=== PATIENT | female | born 1965 | race Caucasian/White ===

== ENCOUNTER 2017-12-01 10:36 | Emergency (ER) | payer OTHER ==
[~2017-12-01 10:36] MED LIST: NORE-45 PO
--- NOTE | 2017-12-01 10:52 | ER Report ---
History and Physical Time Seen By MD: 10:52 Hx. of Stated Complaint: PATIENT WAS SENT OVER BY THE PA AT DR. ALFONSO OFFICE; STATES THAT FOR A WHILE HER BLOOD PRESSURE HAS BEEN HIGH AND THAT SHE HAS SOME LEFT ARM TINGLING, TIGHTNESS OF CHEST AND A LITTLE BIT OF HEART BURN SINCE YESTERDAY AND IS EXPERIENCING TODAY WELL HPI/ROS CHIEF COMPLAINT: elevated blood pressure, chest tightness HISTORY OF PRESENT ILLNESS: This is a 51 year old female. She was sent over to the ER from Dr. Abbott's office by his PA because of symptoms of chest tightness , some left arm tingling, mild shortness of breath associated with a very elevated blood pressure. No history of elevated blood pressure in the past. shortness of breath is mild and seems worse when just sitting, but not worsened with exertion or with lying flat. No cough or fever. Chest tightness just left of sternum, non-radiating, and does not worsen with anything. Has had some heart burn symptoms. These symptoms started yesterday evening and have been off and on since then. Has been having some headaches, but is on her menses and headaches are typical for this, not worse than usual. No confusion, difficulty thinking, dizziness or blurred vision. No problems with urination or with bowels. No abdominal pain. Her mother has a history of cardiac disease, but the patient has no history of this. She has never had blood pressure problems in the past, and last blood pressure prior to today was in the 120 systolic range. She has no known history of thyroid problems. She is on a control pill and on a recent prescription for doxycycline for a skin problems. REVIEW OF SYSTEMS: As above. 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 Reviewed Nurses Notes: Yes Hx Smoking: No Hx Substance Use Disorder: No Constitutional Vital Sign - Last 24 Hours 12/01/17 12/01/17 12/01/17 12/01/17 10:43 10:46 11:00 11:06 Temp 98.4 Pulse 90 82 Resp 20 17 B/P (MAP) 199/103 199/103 (135) 192/124 (146) Pulse Ox 97 95 O2 Delivery Room Air 12/01/17 12/01/17 12/01/17 12/01/17 11:20 11:27 11:45 12:00 B/P (MAP) 166/95 (118) 153/90 (111) 146/91 (109) 141/89 (106) 12/01/17 12/01/17 12/01/17 12/01/17 12:05 12:15 12:30 12:35 Pulse 69 65 Resp 21 20 B/P (MAP) 130/85 (100) 131/88 (102) Pulse Ox 92 93 12/01/17 12/01/17 12/01/17 12/01/17 12:45 13:00 13:05 13:15 Pulse 64 Resp 19 B/P (MAP) 132/86 (101) 140/78 (98) 140/86 (104) Pulse Ox 93 12/01/17 12/01/17 12/01/17 12/01/17 13:30 13:35 13:45 13:50 Pulse 65 72 Resp 26 12 B/P (MAP) 139/87 (104) 138/88 (105) Pulse Ox 94 95 12/01/17 12/01/17 12/01/17 12/01/17 14:00 14:20 14:30 14:50 Pulse 66 63 Resp 12 18 B/P (MAP) 133/111 (118) 140/87 (104) Pulse Ox 96 95 Physical Exam General Appearance: The patient is alert. No acute distress. Non-toxic in appearance. Eyes: Pupils are equal, round. Reactive to light. No pallor, injection or icterus. Extraocular movements are intact. ENT: Mucous membranes are moist. Normal oral mucosa. Posterior oropharynx is normal. Neck: Supple and non tender. No lymphadenopathy. No thyromegaly or nodules. Respiratory: Breathing easily and unlabored. Lungs are clear to auscultation. Cardiovascular: Regular rate and rhythm. No murmurs, gallops or rubs. Normal capillary refill. No edema. Gastrointestinal: Abdomen is soft and non tender. Nondistended. Normal active bowel sounds. No costovertebral angle tenderness with percussion. Neurological: Alert and oriented x3. Cranial nerves II through XII show no acute deficits on my exam. No focal neurologic deficits in the extremities. Skin: Warm and dry. No rashes. Musculoskeletal: No tenderness in palpation of the cervical, thoracic and lumbar spine. DIFFERENTIAL DIAGNOSIS: After history and physical exam, differential diagnosis was considered for hypertensive urgency associated with chest tightness, left arm tingling, and mild shortness of breath, we'll need to rule out acute coronary syndrome as well, but no signs of other end organ damage based on history and exam. Medical Decision Making Data Points Result Diagram: 12/01/17 1109 12/01/17 1109 Laboratory Hematology Test 12/01/17 10:45 12/01/17 11:09 Urine Color Straw Urine Clarity Clear Urine pH 7.0 pH (4.8-9.5) Urine Specific [place] 1.004 Urine Protein Negative mg/dL (NEGATIVE) Urine Glucose (UA) Negative mg/dL (NEGATIVE) Urine Ketones Negative mg/dL (NEGATIVE) Urine Blood Moderate (NEGATIVE) Urine Nitrite Negative (NEGATIVE) Urine Bilirubin Negative (NEGATIVE) Urine Urobilinogen Negative mg/dL (0.2-1.9) Urine Leukocyte Esterase Trace (NEGATIVE) Urine RBC <1 /HPF (0-2/HPF) Urine WBC <1 /HPF (0-5/HPF) Urine Squamous Epithelial Cells Few /LPF (</=FEW) Urine Bacteria Negative /HPF (NONE-FEW) Urine Mucus None /HPF (NONE-FEW) Red Blood Count 4.90 M/uL (4.17-5.56) Mean Corpuscular Volume 87.9 fL (80.0-96.0) Mean Corpuscular Hemoglobin 30.7 pg (26.0-33.0) Mean Corpuscular Hemoglobin Concent 34.9 g/dL (32.0-36.0) Red Cell Distribution Width 12.9 % (11.5-14.5) Mean Platelet Volume 8.3 fL (7.2-11.1) Neutrophils (%) (Auto) 62.4 % (39.4-72.5) Lymphocytes (%) (Auto) 27.2 % (17.6-49.6) Monocytes (%) (Auto) 8.9 % (4.1-12.4) Eosinophils (%) (Auto) 0.4 % (0.4-6.7) Basophils (%) (Auto) 1.1 % (0.3-1.4) Nucleated RBC Relative Count (auto) 0.1 /100WBC Neutrophils # (Auto) 3.8 K/uL (2.0-7.4) Lymphocytes # (Auto) 1.7 K/uL (1.3-3.6) Monocytes # (Auto) 0.5 K/uL (0.3-1.0) Eosinophils # (Auto) 0.0 K/uL (0.0-0.5) Basophils # (Auto) 0.1 K/uL (0.0-0.1) Nucleated RBC Absolute Count (auto) 0.00 K/uL D-Dimer Quantitative (PE/DVT) < 0.27 ug/ml (0-0.50) Sodium Level 139 mmol/L (137-145) Potassium Level 3.9 mmol/L (3.5-5.0) Chloride Level 101 mmol/L (98-107) Carbon Dioxide Level 28 mmol/L (22-31) Blood Urea Nitrogen 14 mg/dl (7-18) Creatinine 0.70 mg/dl (0.52-1.04) Glomerular Filtration Rate Calc > 60.0 Random Glucose 93 mg/dl (75-110) Calcium Level 9.2 mg/dl (8.4-10.2) Total Bilirubin 1.0 mg/dl (0.2-1.3) Aspartate Amino Transf (AST/SGOT) 24 U/L (0-35) Alanine Aminotransferase (ALT/SGPT) 19 U/L (0-56) Alkaline Phosphatase 74 U/L (0-126) Troponin I < 0.012 ng/ml Total Protein 8.3 g/dl (6.3-8.2) Albumin 4.5 g/dl (3.5-5.0) Thyroid Stimulating Hormone (TSH) 0.74 uIU/ml (0.46-4.68) Chemistry Test 12/01/17 10:45 12/01/17 11:09 Urine Color Straw Urine Clarity Clear Urine pH 7.0 pH (4.8-9.5) Urine Specific [place] 1.004 Urine Protein Negative mg/dL (NEGATIVE) Urine Glucose (UA) Negative mg/dL (NEGATIVE) Urine Ketones Negative mg/dL (NEGATIVE) Urine Blood Moderate (NEGATIVE) Urine Nitrite Negative (NEGATIVE) Urine Bilirubin Negative (NEGATIVE) Urine Urobilinogen Negative mg/dL (0.2-1.9) Urine Leukocyte Esterase Trace (NEGATIVE) Urine RBC <1 /HPF (0-2/HPF) Urine WBC <1 /HPF (0-5/HPF) Urine Squamous Epithelial Cells Few /LPF (</=FEW) Urine Bacteria Negative /HPF (NONE-FEW) Urine Mucus None /HPF (NONE-FEW) White Blood Count 6.1 k/uL (4.5-11.0) Red Blood Count 4.90 M/uL (4.17-5.56) Hemoglobin 15.0 g/dL (12.0-16.0) Hematocrit 43.0 % (34.0-47.0) Mean Corpuscular Volume 87.9 fL (80.0-96.0) Mean Corpuscular Hemoglobin 30.7 pg (26.0-33.0) Mean Corpuscular Hemoglobin Concent 34.9 g/dL (32.0-36.0) Red Cell Distribution Width 12.9 % (11.5-14.5) Platelet Count 287 K/uL (150-450) Mean Platelet Volume 8.3 fL (7.2-11.1) Neutrophils (%) (Auto) 62.4 % (39.4-72.5) Lymphocytes (%) (Auto) 27.2 % (17.6-49.6) Monocytes (%) (Auto) 8.9 % (4.1-12.4) Eosinophils (%) (Auto) 0.4 % (0.4-6.7) Basophils (%) (Auto) 1.1 % (0.3-1.4) Nucleated RBC Relative Count (auto) 0.1 /100WBC Neutrophils # (Auto) 3.8 K/uL (2.0-7.4) Lymphocytes # (Auto) 1.7 K/uL (1.3-3.6) Monocytes # (Auto) 0.5 K/uL (0.3-1.0) Eosinophils # (Auto) 0.0 K/uL (0.0-0.5) Basophils # (Auto) 0.1 K/uL (0.0-0.1) Nucleated RBC Absolute Count (auto) 0.00 K/uL D-Dimer Quantitative (PE/DVT) < 0.27 ug/ml (0-0.50) Glomerular Filtration Rate Calc > 60.0 Calcium Level 9.2 mg/dl (8.4-10.2) Total Bilirubin 1.0 mg/dl (0.2-1.3) Aspartate Amino Transf (AST/SGOT) 24 U/L (0-35) Alanine Aminotransferase (ALT/SGPT) 19 U/L (0-56) Alkaline Phosphatase 74 U/L (0-126) Troponin I < 0.012 ng/ml Total Protein 8.3 g/dl (6.3-8.2) Albumin 4.5 g/dl (3.5-5.0) Thyroid Stimulating Hormone (TSH) 0.74 uIU/ml (0.46-4.68) Coagulation Test 12/01/17 11:09 D-Dimer Quantitative (PE/DVT) < 0.27 ug/ml Urinalysis Test 12/01/17 10:45 Urine Color Straw Urine Clarity Clear Urine pH 7.0 pH (4.8-9.5) Urine Specific Franklin 1.004 Urine Protein Negative mg/dL (NEGATIVE) Urine Glucose (UA) Negative mg/dL (NEGATIVE) Urine Ketones Negative mg/dL (NEGATIVE) Urine Blood Moderate (NEGATIVE) Urine Nitrite Negative (NEGATIVE) Urine Bilirubin Negative (NEGATIVE) Urine Urobilinogen Negative mg/dL (0.2-1.9) Urine Leukocyte Esterase Trace (NEGATIVE) Urine RBC <1 /HPF (0-2/HPF) Urine WBC <1 /HPF (0-5/HPF) Urine Squamous Epithelial Cells Few /LPF (</=FEW) Urine Bacteria Negative /HPF (NONE-FEW) Urine Mucus None /HPF (NONE-FEW) EKG/Imaging EKG Interpretation 12 lead EKG: Rhythm: normal sinus rhythm, rate 76 [place]: normal QRS: normal ST segments: Nonspecific, no ST elevation or depression noted Imaging 2 VIEWS CHEST INDICATION: Chest tightness COMPARISON: None available FINDINGS: Heart size within normal limits. There is no focal infiltrate or lobar consolidation. There is no pneumothorax or pleural effusion. Moderately hyperinflated lung escobar noted. There is an ovoid 1.4 cm density projecting over the lower thoracic spine on the lateral view which may relate to a posterior lower lobe large nodule. This is not seen on the frontal view. Consider nonemergent follow-up CT of the chest to further characterize. IMPRESSION: 1. No acute cardiopulmonary process. 2. Ovoid nodular density projecting of the lower thoracic spine on the lateral view as above. A nonemergent follow-up CT could be obtained to further characterize. Report Dictated By: Petey Cee MD at 12/01/2017 1:18 PM ED Course/Re-evaluation Clinical Indication for ER IV: IV Access ED Course The patient had an IV placed and labs obtained. EKG as noted above. Labs were unremarkable. Negative Troponin and D-dimer. Given Labetalol 20mg IV and good results. Symptoms are gone. Chest x-ray shows a nodular density just off of the thoracic spine. CT scan obtained. Patient was started on Lisinopril 5mg once a day and recommended to follow-up with primary care for further evaluation and recommended cardiac stress testing. Labs need to be repeated in a few weeks after starting the Lisinopril. Decision to Disposition Date: Dec 01, 2017 Decision to Disposition Time: 13:46 Depart Departure Latest Vital Signs Vital Signs Date Time Temp Pulse Resp B/P (MAP) Pulse Ox O2 Delivery O2 Flow Rate FiO2 12/01/17 14:50 63 18 95 12/01/17 14:30 140/87 (104) 12/01/17 10:43 98.4 Room Air Impression: Primary Impression: Hypertensive urgency Additional Impression: Chest tightness or pressure Condition: Improved Disposition: HOME OR SELF-CARE Referrals: SHANNAN ABBOTT MD (PCP) New Scripts Lisinopril (LISINOPRIL) 5 Mg Tablet 5 MG PO QDAY, #30 TAB 0 Refills Prov: JOSE L PIERRE MD 12/01/17 Patient Instructions: Hypertension (ED) Additional Instructions: Labs and x-rays today did not show any major problems. We did see the nodular density seen on the chest x-ray that we talked about and we will get the CT results for you once the CT scan has been read by radiology. We do not know why your blood pressure was elevated, but it responded well the to the medicine we gave in the ER (Labetalol 20mg IV). We want to start you on a low dose of a blood pressure medicine called Lisinopril. (Lisinopril 5mg once a day). This is a very common blood pressure medicine with good efficacy and good protection for the heart and kidneys. You will need to have repeat lab testing in the next couple of weeks to check kidney function after starting this medicine. Please take your blood pressure a couple of times a day and keep a log of these for your regular doctor. We think that the chest tightness may have been due to the elevated blood pressure, but there was no sign of a heart attack. We would recommend talking to your regular doctor about getting a cardiac stress test done in the next week or two to further evaluate the heart. If you have further symptoms of chest tightness or shortness of breath, we recommend further evaluation sooner. No heavy physical activity until you follow-up with your regular doctor. Call and talk to Dr. Abbott's office to see if they can assist with the new medication and stress test, or if they would like you to get set up with a primary care provider for these things. Problem Qualifiers JOSE L PIERRE MD Dec 01, 2017 10:52
[2017-12-01] MEDS ORDERED: ASPI1TAB23 PO (10:59)
[2017-12-01] MEDS ORDERED: DOXY50SY2 PO (10:59)
[2017-12-01] MEDS ORDERED: LABETALOL HCL 100 MG/20ML VIAL IVP ONE (11:05)
--- NOTE | 2017-12-01 11:15 | EKG ---
FACILITY: [facility] PATIENT NAME: CALOS IBRAHIM : [id number] MR: [id number] V: [id number] EXAM DATE: ORDERING PHYSICIAN: JOSE L PIERRE TECHNOLOGIST: Test Reason : Blood Pressure : / mmHG Vent. Rate : 076 BPM Atrial Rate : 076 BPM P-R Int : 158 ms QRS Dur : 074 ms QT Int : 416 ms P-R-T Axes : 082 -11 053 degrees QTc Int : 468 ms Sinus rhythm Possible Left atrial enlargement Nonspecific ST abnormality Abnormal ECG No previous ECGs available Confirmed by ASHIA PATIÑO ([id number]) on 12/02/2017 5:37:50 AM Referred By: Confirmed By:ASHIA PATIÑO
[2017-12-01 11:18] LABS: PLATELET COUNT, AUTOMATED 287 K/uL (150-450)
--- NOTE | 2017-12-01 13:23 | RADIOLOGY IMAGING REPORT ---
FACILITY: [facility] PATIENT NAME: Gaye Bass : 1965 MR: [id number] V: [id number] EXAM DATE: ORDERING PHYSICIAN: JOSE L PIERRE TECHNOLOGIST: Location: [facility] - [place] Patient: Gaye Bass : 1965 Visit/Account:[id number] Date of Sevice: 12/01/2017 2 VIEWS CHEST INDICATION: Chest tightness COMPARISON: None available FINDINGS: Heart size within normal limits. There is no focal infiltrate or lobar consolidation. There is no pneumothorax or pleural effusion. Moderately hyperinflated lung escobar noted. There is an ovoid 1.4 cm density projecting over the low er thoracic spine on the lateral view which may relate to a posterior lower lobe large nodule. This is not seen on the frontal view. Consider nonemergent follow-up CT of the chest to further character ize. IMPRESSION: 1. No acute cardiopulmonary process. 2. Ovoid nodular density projecting of the lower thoracic spine on the lateral view as above. A non emergent follow-up CT could be obtained to further characterize. Report Dictated By: Petey Cee MD at 12/01/2017 1:18 PM Report E-Signed By: Petey Cee MD at 12/01/2017 1:20 PM WSN:[email or web address]
[2017-12-01] MEDS ORDERED: LISINOPRIL 10 MG TAB PO ONE (13:45)
[2017-12-01] MEDS ORDERED: LISI5TAB25 PO (13:55)
[2017-12-01] MEDS ORDERED: IOPAMIDOL 76% 100 ML INFUS BTL 100 ML ONE (14:01)
[2017-12-01 14:30] VITALS: BP 140/87
--- NOTE | 2017-12-01 14:56 | RADIOLOGY IMAGING REPORT ---
FACILITY: [facility] [place] PATIENT NAME: Gaye Bass : 1965 MR: [id number] V: [id number] EXAM DATE: ORDERING PHYSICIAN: JOSE L PIERRE TECHNOLOGIST: Location: [facility] Patient: Gaye Bass : 1965 Visit/Account:[id number] Date of Sevice: 12/01/2017 Examination: CT chest with contrast COMPARISON: Chest x-ray same day. HISTORY: abnormal nodule on chest x-ray PROCEDURE: Multiplanar contrast-enhanced imaging of the chest with 75 mL intravenous Isovue 370. One of the following dose optimization techniques was utilized in the performance of this exam: Automated exposure control; adjustment of the mA and/or kV according to the patient's size; or use of an itera tive reconstruction technique. Specific details can be referenced in the facility's radiology CT ex am operational policy. FINDINGS: Lungs and pleura: Mild pulmonary hyperexpansion. Right lower lobe 4 mm nodule (series 3 image 80). No other consolidation or nodule is identified. Airways: Negative. Mediastinum, cardiac chambers, and aguilar: Cardiac chamber size is normal. Main pulmonary artery size i s normal. Mild coronary calcifications. No pericardial effusion. No thoracic aortic aneurysm or disse ction. No thoracic lymph node enlargement. Visualized thyroid is unremarkable. Upper abdomen: No evidence of acute disease in the visualized upper abdomen. Osseous structures: The radiographic abnormality corresponds to a focal region of benign calcificatio n within the T11-T12 intervertebral disc. Incompletely visualized cervical spine fusion. No acute fin ding. IMPRESSION: 1. The radiographic abnormality corresponds to a benign calcification within the T11-T12 intervertebr al disc. 2. Right lower lobe 4 mm nodule. Follow-up as detailed below. 3. Mild coronary calcifications. [employer] FOLLOW-UP GUIDELINES FOR NEWLY DETECTED INCIDENTAL NODULES IN PERSONS 35 YEARS OF AGE OR OLDER. *THESE RECOMMENDATIONS DO NOT APPLY TO LUNG CANCER SCREENING, PATIENTS WITH IMMUNOSUPPRESSION , OR PA TIENTS WITH KNOWN PRIMARY MALIGNANCY. SOLITARY SOLID NODULES If nodule size is less than 6 mm: Low risk patient - no follow up needed High risk patient - Optional CT at 12 months. LOW RISK PATIENT: Minimal or absent history of tobacco use and of other known risk factors. HIGH RISK PATIENT: Tobacco use, family history of lung cancer, upper pulmonary lobe location of nodul e, presence of emphysema, pulmonary fibrosis, older age. Tomi H, Ino DP, Will WOODS, et al. Guidelines for Management of Incidental Pulmonary Nodules Dete cted on CT Images: From the Fleischner Society 2017. Radiology. Report Dictated By: Kavin Frost MD at 12/01/2017 2:43 PM Report E-Signed By: Kavin Frost MD at 12/01/2017 2:52 PM WSN:[id number]
== END 2017-12-01 14:57 | disposition home or self-care (01) ==
LOC: ER 10:40
DX: I16.0 Hypertensive urgency (principal); R07.89 Other chest pain
CPT/HCPCS: 71046; 71260; 81001; 84443; 84484; 85025; 85379; 93005; 96374; 99285; J3490; Q9967; 82040; 82247; 82310; 82374; 82435; 82565; 82947; 84075; 84132; 84155; 84295; 84450; 84460; 84520

== ENCOUNTER → 2017-12-27 | Outpatient (CLI) | payer OTHER ==
[~2017-12-27] MED LIST changes: +ASPI1TAB23 PO; +DOXY50SY2 PO; +LISI5TAB25 PO
--- NOTE | 2017-12-27 14:29 | EKG ---
FACILITY: [facility] PATIENT NAME: CALOS IBRAHIM : [id number] MR: [id number] V: [id number] EXAM DATE: ORDERING PHYSICIAN: MARK BASURTO TECHNOLOGIST: JOSE L Test Reason : FOLLOW UP STRESSTEST Blood Pressure : / mmHG Vent. Rate : 081 BPM Atrial Rate : 081 BPM P-R Int : 170 ms QRS Dur : 076 ms QT Int : 384 ms P-R-T Axes : 076 062 068 degrees QTc Int : 446 ms Normal sinus rhythm Normal ECG No previous ECGs available Confirmed by MARK BASURTO ([id number]) on 12/27/2017 3:26:26 PM Referred By: SB Confirmed By:MARK BASURTO
--- NOTE | 2017-12-27 15:28 | RT STRESS TEST REPORT ---
FACILITY: [facility] PATIENT NAME: CALOS IBRAHIM : [id number] MR: [id number] V: [id number] EXAM DATE: ORDERING PHYSICIAN: KIM NAVARRO TECHNOLOGIST: Aruna Acquisition Time: 2017-12-27 08:56:29 Total Exercise Time: 00:08:35 Test Indications: Hypertension Medications: lesinapro Protocol: BRUCE2 Max HR: 179 BPM 106% of Pred: 168 BPM Max BP: 184/101 mmHG Max Work Load: 10.1 METS EkG shows symmetrical ST depression in the inferior and Lateral leads about 1-2 mm in size without an y C.P. These changes improved during recovery and patient returned for another EKG at 2:00 pm that was normal Impresion: Treadmill stress test is abnormal with ischemic changes present in inferior and lateral le ads Recommend Nuclear medicine / treadmill stress test or cardiology consult. Dr. Rosas office called a nd am waiting for the reply Confirmed by MARK BASURTO ([id number]) on 12/27/2017 3:26:18 PM Referred By: Overread By: MARK BASURTO
== END ==
LOC: RESP 03:08
PROVIDERS: ATTEND Physician Assistant
DX: I10 Essential (primary) hypertension (principal); R07.9 Chest pain, unspecified
CPT/HCPCS: 93005; 93017

== ENCOUNTER → 2018-01-24 | Outpatient (CLI) | payer OTHER ==
--- NOTE | 2018-01-24 15:10 | RT STRESS TEST REPORT ---
FACILITY: [facility] PATIENT NAME: CALOS IBRAHIM : [id number] MR: [id number] V: [id number] EXAM DATE: ORDERING PHYSICIAN: KIM NAVARRO TECHNOLOGIST: Kimberly Acquisition Time: 2018-01-24 14:33:25 Total Exercise Time: 00:07:42 Test Indications: Abnormal Treadmill Test Medications: Protocol: BUD 2 Max HR: 176 BPM 104% of Pred: 168 BPM Max BP: 180/095 mmHG Max Work Load: 9.6 METS Baseline EKG shows ST depression in the inferolateral leads. Stress EKGs demonstrated horizontal ST d epression in the lateral leads, which evolved into upsloping ST depression as exercise progressed. Some ST elevation was noted in the inferior lead s as well. She also had increased ventricular ectopy with a few couplets during maximal exercise. She did not have any symptoms other than some le g "tightness" during exercise. All of these findings resolved very early in recovery. IMPRESSION: I suspect at least intermediate probability of ischemia. Await Myoview images. Confirmed by ASHIA PATIÑO ([id number]) on 01/24/2018 3:10:51 PM Referred By: Overread By: ASHIA PATIÑO
--- NOTE | 2018-01-25 07:56 | RADIOLOGY IMAGING REPORT ---
FACILITY: [facility] [place] PATIENT NAME: Gaye Bass : 1965 MR: [id number] V: [id number] EXAM DATE: ORDERING PHYSICIAN: KIM NAVARRO TECHNOLOGIST: Location: [facility] [place] Patient: aGye Bass : 1965 Visit/Account:[id number] Date of Sevice: 01/24/2018 EXAMINATION: Single Isotope SPECT Imaging with Exercise and Gated SPECT Imaging DATE OF EXAMINATION: January 24, 2018 DATE OF INTERPRETATION: January 24, 2018 REQUESTING PHYSICIAN: KIM NAVARRO INDICATION: The patient is a 52-year-old female evaluated for abnormal exercise treadmill test. PROCEDURE: After informed consent the patient received an intravenous injection of 12.5 mCi of Tc-9 9m sestamibi followed at the appropriate time interval by rest imaging. The patient then exercised a ccording to the standard Aryan protocol for 7 minutes achieving 9 METS. Resting heart rate was 76 bp m with a peak heart rate of 176 bpm which is greater than 100 % of maximal predicted heart rate for age. Blood pressure at rest was 131 / 98; blood pressure during exercise was 180 / 95. There was no chest pain during exercise. Exercise was discontinued because of fatigue. Baseline EKG demonstrate s normal sinus rhythm with poor R-wave progression, cannot exclude prior anterior myocardial infarcti on, nonspecific ST changes. There were [address] depression consistent with EKG changes of ischemia at peak exercise. Approximately one minute and 30 seconds prior to the termination of ex ercise, the patient received an intravenous injection of 30.6 mCi of Tc-99m sestamibi followed by str ess imaging. RAW DATA: Examination of the summed raw data revealed a good quality study. MYOCARDIAL PERFUSION: The tomographic images demonstrate normal myocardial perfusion tracer uptake o n both stress and rest images. No fixed or reversible defect noted. GATED IMAGES: The gated images demonstrate an ejection fraction 65% with no wall motion abnormality IMPRESSION: 1. Normal myocardial perfusion scan with no evidence of ischemia or prior infarction 2. Normal myocardial perfusion scan. 3. Normal LV systolic function; LVEF 65%. 4. Based on the results of this exam, the patient appears to be at low risk for future cardiovascular events. Report Dictated By: Francia Pitt at 01/24/2018 5:11 PM Report E-Signed By: Francia Pitt at 01/25/2018 7:54 AM WSN:[id number]
== END ==
LOC: NUC 02:05
PROVIDERS: ATTEND Physician Assistant
DX: R93.1 Abnormal findings on diagnostic imaging of heart and coronary circulation (principal)
CPT/HCPCS: 78452; 93017; A9500

== ENCOUNTER → 2018-03-23 | Outpatient (CLI) | payer OTHER ==
--- NOTE | 2018-03-23 11:13 | RADIOLOGY IMAGING REPORT ---
FACILITY: [facility] [place] PATIENT NAME: CALOS IBRAHIM : [id number] MR: [id number] V: [id number] EXAM DATE: ORDERING PHYSICIAN: KIM NAVARRO TECHNOLOGIST: Viv Schmid PROCEDURE:BILATERAL DIGITAL SCREENING MAMMOGRAM WITH CAD ASSISTED INTERPRETATION & 3D TOMOSYNTHESIS COMPARISON:Prior mammograms 03/20/17, priors to 03/05/13. INDICATIONS:SCREENING FINDINGS: Breast parenchyma is extremely dense. There are no mammographic findings concerning for malignancy. No significant interval change. DIAGNOSTIC CATEGORY 1--NEGATIVE. RECOMMENDATIONS: ROUTINE MAMMOGRAM AND CLINICAL EVALUATION IN 1 YR. IMPRESSION: BIRADS 1: Negative. Dictated by: Jose Porter on 03/23/2018 at 10:04 Transcribed by: CARLOS on 03/23/2018 at 10:15 Approved by: Jose Porter on 03/23/2018 at 11:12 [facility]
== END ==
LOC: MAMO 01:14
PROVIDERS: ATTEND Physician Assistant
DX: Z12.31 Encounter for screening mammogram for malignant neoplasm of breast (principal); Z80.3 Family history of malignant neoplasm of breast
CPT/HCPCS: 77063; 77067

== ENCOUNTER 2018-06-19 07:54 | Outpatient (RCR) | payer OTHER ==
[2018-06-20] MEDS ORDERED: IOPAMIDOL 76% 50 ML INFUS BTL 100 ML ONE (08:42)
--- NOTE | 2018-06-20 10:04 | RADIOLOGY IMAGING REPORT ---
FACILITY: [facility] [place] PATIENT NAME: Gaye Bass : 1965 MR: [id number] V: [id number] EXAM DATE: ORDERING PHYSICIAN: KIM NAVARRO TECHNOLOGIST: [facility] Patient: Gaye Bass : 1965 Visit/Account:[id number] Date of Sevice: 06/20/2018 CT CHEST (CONTRAST) History: Six-month follow-up right lower lobe lung nodule TECHNIQUE: Contiguous axial images were performed through the chest to the level of the adrenal gla nds following the administration of IV contrast. Coronal and sagittal reformatting was also perform ed.Dose Lowering Technique One of the following dose optimization techniques was utilized in the performance of this exam: Autom ated exposure control; adjustment of the mA and/or kV according to the patient's size; or use of an i terative reconstruction technique. Specific details can be referenced in the facility's radiology C T exam operational policy. Contrast: 75 mL Isovue-[id number] COMPARISON STUDIES: December 01, 2017 CT of the chest and two-view chest. Lungs / Pleura: There is mild biapical fibrotic change which remains stable the previously noted 4 mm noncalcified nodule posterior aspect the right lower lobe remains stable and is best seen on image 262 of series 4.. No other pulmonary nodules are seen. There is no evidence of focal infiltrates o r pleural effusions. Mediastinum/nodes: negative. Heart and vessels: negative. Musculoskeletal / Body wall: Incompletely imaged is anterior fusion of the lower cervical spine. C alcified disc at T11-12 is again noted. Moderate disc space narrowing with sclerosis of the adjacent endplates is present at L2-3 Upper abdomen: There is a 1.6 x 1.2 cm cyst lateral segment left lobe of the liver IMPRESSION: Previously noted 4 mm noncalcified nodule posterior aspect right lower lobe remains stable when shanti red to December 01, 2017 [employer] FOLLOW-UP GUIDELINES FOR NEWLY DETECTED INCIDENTAL NODULES IN PERSONS 35 YEARS OF AGE OR OLDER. *These recommendations do NOT apply to lung cancer screening, patients with immunosuppression or leon ents with a known primary malignancy. SOLITARY SOLID NODULE If nodule size is < 6 mm: * Low risk patient ? No routine follow-up. * High risk patient ? Optional CT at 12 months. If nodule size is 6-8 mm: * Low risk patient ? CT at 6-12 months, then consider CT at 18-24 months if no change. * High risk patient ? CT at 6-12 months, then CT at 18-24 months if no change. If nodule size is > 8 mm: * Low risk patient ? Consider CT at 3, 9 and 24 months (if no change), PET/CT, tissue sampling or a combination thereof. * High risk patient ? Consider CT at 3, 9 and 24 months (if no change), PET/CT, tissue sampling, or a combination thereof. LOW RISK PATIENT: Minimal or absent history of tobacco use and of other known risk factors. HIGH RISK PATIENT: Tobacco use, family history of lung cancer, upper pulmonary lobe location of nodul e, presence of emphysema, pulmonary fibrosis, older age. Tomi H, Ino DP, Sukhjindero JM, et al. Guidelines for Management of Incidental Pulmonary Nodules Dete cted on CT Images: From the [employer] 2017. Radiology. [facility] Additional chronic findings as described Report Dictated By: Bonnie Sotomayor MD at 06/20/2018 9:47 AM Report E-Signed By: Bonnie Sotomayor MD at 06/20/2018 9:59 AM GOERGE:NATHALIE
== END 2018-06-20 18:00 | disposition home or self-care (01) ==
LOC: CT 07:54 → EDSTATUS 06-20 07:54 → CT 06-20 18:00
PROVIDERS: ATTEND Physician Assistant
DX: R91.1 Solitary pulmonary nodule (principal)
CPT/HCPCS: 36415; 71260; 82565; Q9967